=== PATIENT | female | born 1970 | race Caucasian/White ===

== ENCOUNTER 2017-07-09 19:17 | Emergency (ER) | payer MEDICAID ==
[2017-07-09 20:12] LABS: BILIRUBIN,URINE NEGATIVE (NEGATIVE)
[2017-07-09 20:14] LABS: UA w/ MICROSCOPIC CHARGE YES
[2017-07-09 20:41] LABS: UR CULTURE IF IND NOT INDICATED; WBC,URINE 0-3 /HPF (0-5)
[2017-07-09 21:25] LABS: BASOPHILS # (AUTO) 0.1 10^3/uL (0.0-0.1); BASOPHILS % (AUTO) 0.5 %; EOSINOPHILS # (AUTO) 0.1 10^3/uL (0.0-0.7); EOSINOPHILS % (AUTO) 1.1 %; HCT - HEMATOCRIT 41.6 % (37.0-47.0); HGB - HEMOGLOBIN 14.2 g/dL (12.0-16.0); LYMPHOCYTES # (AUTO) 1.9 10^3/uL (1.5-3.5); LYMPHOCYTES % (AUTO) 16.1 %; MEAN CORPUSCULAR HEMOGLOBIN 30.2 pg (27.0-31.0); MEAN CORPUSCULAR HGB CONC 34.2 g/dL (32.0-36.0); MEAN CORPUSCULAR VOLUME 88.2 fL (81.0-99.0); MEAN PLATELET VOLUME 6.9 fL (7.9-10.8); MONOCYTES # (AUTO) 0.7 10^3/uL (0.0-1.0); MONOCYTES % (AUTO) 5.7 %; NEUTROPHILS % (AUTO) 76.6 %; NUCLEATED RED BLOOD CELLS AUTO 0.2 /100WBC; RED BLOOD COUNT 4.72 10^6/uL (4.20-5.40); RED CELL DISTRIBUTION WIDTH 13.2 % (12.0-15.0); UNCORRECTED WHITE BLOOD COUNT 11.7 x10^3/uL; WHITE BLOOD COUNT 11.7 x10^3/uL (4.8-10.8)
[2017-07-09 21:38] LABS: ALBUMIN/GLOBULIN RATIO 1.2 (1.0-2.2); BILIRUBIN,TOTAL 0.5 mg/dL (0.2-1.0); CALCIUM 9.5 mg/dL (8.5-10.3); POTASSIUM 3.9 mmol/L (3.5-5.0); TOTAL PROTEIN 7.7 g/dL (6.7-8.2)
--- NOTE | 2017-07-09 21:39 | ED Physician Documentation ---
PD HPI ABD PAIN - Stated complaint Stated Complaint: ABD PX - Chief complaint Chief Complaint: Abd Pain - History obtained from History obtained from: Patient, Family - History of Present Illness Timing - onset: How many weeks ago (1) Timing - details: Abrupt onset, Still present, Intermittant, Waxing and waning Pain level max: 10 Pain level now: 10 Quality: Pain Location: LUQ Radiation: Left flank Improved by: No: Eating, Laying still, Vomiting, BM, Position, Meds Worsened by: No: Eating, Moving, Breathing, Position, Palpation Associated symptoms: Nausea. No: Fever, Vomiting, Dysuria Similar symptoms before: Has not had sx before Recently seen: Not recently seen Review of Systems Constitutional: reports: Reviewed and negative Cardiac: reports: Reviewed and negative Respiratory: reports: Reviewed and negative GI: reports: Abdominal Pain, Nausea. denies: Vomiting : denies: Dysuria, Frequency PD PAST MEDICAL HISTORY - Past Medical History Past Medical History: No - Past Surgical History Past Surgical History: Yes General: Other /[employer]IST[employer]: Hysterectomy - Present Medications Home Medications: Ambulatory Orders Medication Instructions Recorded Confirmed oxyCODONE/ACET 5/325 [Percocet 5 1 - 2 each PO Q6H PRN #14 tablet 07/10/17 mg/325 mg] - Allergies Allergies/Adverse Reactions: Allergies Allergy/AdvReac Type Severity Reaction Status Date / Time No Known Drug Allergies Allergy Verified 07/09/17 19:59 - Social History Does the pt smoke?: Yes Smoking Status: Current every day smoker Does the pt have substance abuse?: No - Immunizations Immunizations: TDAP >10years/unknown - POLST Patient has POLST: No PD ED PE NORMAL - Vitals Vital signs reviewed: Yes - General General: Alert and oriented X 3, Well developed/nourished, Other (painful distress) - Neck Neck: Supple, no meningeal sign - Cardiac Cardiac: RRR, No murmur - Respiratory Respiratory: No respiratory distress, Clear bilaterally - Abdomen Abdomen: Soft, Non distended - Back Back: No CVA TTP - Derm Derm: Normal color, Warm and dry PD ED PE EXPANDED - Abdomen Abdomen: Tender to palpation, Periumbilical, LLQ Results - Vitals Vitals: Oxygen O2 Source Room air - Labs Labs: Laboratory Tests 09/13/17 09/13/17 09/13/17 20:05 21:16 21:16 WBC 11.7 H RBC 4.72 Hgb 14.2 Hct 41.6 MCV 88.2 MCH 30.2 MCHC 34.2 RDW 13.2 Plt Count 234 MPV 6.9 L Neut # 9.0 H Lymph # 1.9 Bell # 0.7 Eos # 0.1 Baso # 0.1 Absolute Nucleated RBC 0.02 Nucleated RBCs 0.2 Sodium 134 L Potassium 3.9 Chloride 99 L Carbon Dioxide 26 Anion Gap 9.0 BUN 10 Creatinine 1.0 Estimated GFR (MDRD) 59 L Glucose 209 H Calcium 9.5 Total Bilirubin 0.5 AST 27 ALT 30 Alkaline Phosphatase 92 Total Protein 7.7 Albumin 4.2 Globulin 3.5 Albumin/Globulin Ratio 1.2 Lipase 30 Urine Color YELLOW Urine Clarity CLEAR Urine pH 7.0 Ur Specific [place] 1.015 Urine Protein NEGATIVE Urine Glucose (UA) >=1000 H Urine Ketones NEGATIVE Urine Occult Blood SMALL H Urine Nitrite NEGATIVE Urine Bilirubin NEGATIVE Urine Urobilinogen 0.2 (NORMAL) Ur Leukocyte Esterase NEGATIVE Urine RBC 6-10 H Urine WBC 0-3 Ur Squamous Epith Cells RARE Squamous Urine Bacteria Rare Ur Microscopic Review INDICATED Urine Culture Comments NOT INDICATED - Rads (name of study) CT A/P Radiology: Prelim report reviewed, See rad report PD MEDICAL DECISION MAKING - ED course Complexity details: reviewed results, re-evaluated patient, considered differential, d/w patient, d/w family Departure - Departure Disposition: 01 Home, Self Care Clinical Impression: Renal colic Condition: Good Instructions: ED Stone Renal W Colic Prescriptions: oxyCODONE/ACET 5/325 [Percocet 5 mg/325 mg] 1 - 2 each PO Q6H PRN #14 tablet PRN Reason: Pain Print Language: [place] Comments: Contact your primary care physician to arrange for next available appointment Discharge Date/Time: 07/10/17 01:45
[2017-07-09] MEDS ORDERED: HYDROmorphone 1 MG/ML SYRINGE IVP STA (22:02)
[2017-07-09] MEDS ORDERED: ONDANSETRON 4 MG/2 ML VIAL IVP STA (22:02)
[2017-07-09] MEDS ORDERED: HYDROmorphone 1 MG/ML SYRINGE ONE (22:09)
[2017-07-09] MEDS ORDERED: ONDANSETRON 4 MG/2 ML VIAL ONE (22:09)
[2017-07-09] MEDS ORDERED: IOPAMIDOL-300 100 ML VIAL IVP ONE (23:00)
--- NOTE | 2017-07-09 23:37 | CT Preliminary Report ---
Exam: CT Abdomen/Pelvis W/ IMPRESSION: 1. There is a 3 x 3 mm stone at the left vesicoureteral junction resulting in mild hydroureteronephro sis. The stone is surrounded by bladder wall edema pericystic stranding. 2. Mild fatty liver infiltration. [facility] SITE ID: [id number]
--- NOTE | 2017-07-09 23:39 | CT Report ---
EXAM: CT ABDOMEN AND PELVIS EXAM DATE: 07/09/2017 11:03 PM. CLINICAL HISTORY: Abd. pain. COMPARISONS: None. TECHNIQUE: Routine helical CT imaging was performed through the abdomen and pelvis. IV contrast: 100 mL Isovue-300. Enteric contrast: No. Reconstructions: Coronal and sagittal. In accordance with CT protocol optimization, one or more of the following dose reduction techniques w ere utilized for this exam: automated exposure control, adjustment of mA and/or KV based on patient s ize, or use of iterative reconstructive technique. FINDINGS: Lung Bases: Unremarkable. Liver: Decreased liver attenuation with no focal lesions. Gallbladder/Bile Ducts: The gallbladder has been removed. No bile duct dilatation. Spleen: Normal. Pancreas: Normal. Adrenal Glands: Normal. Kidneys: Delayed left renal enhancement with perinephric stranding and mild dilatation of the ureter and collecting system. This is secondary to a 3 x 3 mm stone at the vesicoureteral junction. There is extensive bladder wall edema with adjacent perinephric stranding. Peritoneal Cavity/Bowel: Diverticulosis, no diverticulitis. No bowel obstruction. No free air or flui d collections. The appendix is well visualized and normal. Pelvic Organs: Bladder inflammatory changes secondary to possibly impacted stone as detailed above. Vasculature: No aneurysms or other significant abnormality. Bones: No significant abnormality. Other: None. IMPRESSION: 1. There is a 3 x 3 mm stone at the left vesicoureteral junction resulting in mild hydroureteronephro sis. The stone is surrounded by bladder wall edema pericystic stranding. 2. Mild fatty liver infiltration. [facility] Referring Provider Line: [phone] SITE ID: [id number]
[2017-07-10] MEDS ORDERED: HYDROmorphone 1 MG/ML SYRINGE IVP STA (00:31)
[2017-07-10] MEDS ORDERED: HYDROmorphone 1 MG/ML SYRINGE ONE (00:47)
[2017-07-10] MEDS ORDERED: oxyCODONE/ACET 5/325 Prepack 4 PO STA (01:25)
[2017-07-10 01:34] VITALS: BP 120/70
[2017-07-10] MEDS ORDERED: oxyCODONE/ACET 5/325 Prepack 4 PO ONE (01:35)
== END 2017-07-10 01:45 | disposition home or self-care (01) ==
LOC: ED 19:17
DX: N20.1 Calculus of ureter (principal); F17.200 Nicotine dependence, unspecified, uncomplicated
CPT/HCPCS: 36415; 74177; 80053; 81001; 83690; 85025; 96374; 96375; 96376; 99283; 99284; J1170; Q9967; 81003; 87086